=== PATIENT | male | born 1960 | race Two or more races ===

== ENCOUNTER 2023-09-08 01:09 | Emergency (ER) | payer OTHER ==
[~2023-09-08] VITALS: Ht 185.4 cm; Wt 111.1 kg
[2023-09-08] MEDS ORDERED: NORVASC5 MG PO (01:39)
[2023-09-08] MEDS ORDERED: LEXAPRO5 MG PO (01:39)
[2023-09-08] MEDS ORDERED: ADULT LOW DOSE81 M1 (01:40)
[2023-09-08 03:01] LABS: PH,URINE 5.5 (5.0-8.0); URINE APPEARANCE Clear; URINE BILIRRUBIN Negative (NEGATIVE); URINE BLOOD Negative; URINE COLOR Yellow; URINE GLUCOSE Negative (NEGATIVE); URINE LEUKOCYTE Negative; URINE NITRATE Negative; URINE PROTEIN Negative (NEGATIVE)
[2023-09-08 03:04] LABS: URINE EPITHELIAL CELLS 4.4 uL (0.0-38.8); URINE WBC 3.8 uL (0.0-23.2)
[2023-09-08 03:15] LABS: HEMATOCRIT 33.5 % (39.0-48.0); HEMOGLOBIN 10.8 g/dL (13-16.00); MEAN CORPUSCULAR HEMOGLOBIN 18.8 pg (27.00-32.0); MEAN CORPUSCULAR HGB CONC 32.4 g/dl (32.0-36.0); PLATELET COUNT 160 K/uL (150-450); RED BLOOD COUNT 5.76 M/uL (4.00-6.00); RED CELL DISTRIBUTION WIDTH 16.2 % (11.5-14.5)
[2023-09-08 03:18] LABS: MEAN CELL VOLUME 58.1 fL (80.0-100.00)
[2023-09-08 03:19] LABS: URINE BACTERIA 1.2 uL (0.0-1933); URINE RBC 1.8 uL (0.0-20.8)
[2023-09-08 03:24] LABS: INR 1.04; PARTIAL THROMBOPLASTIN TIME 28.2 SECONDS (22.0-34.0); PROTHROMBIN TIME 10.9 SECONDS (9.0-11.5)
[2023-09-08 03:26] LABS: ALBUMIN 3.7 gm/dL (3.4-5.0); BILIRUBIN TOTAL 0.77 mg/dL (0.3-1.2); CALCIUM 8.7 mg/dL (8.5-10.1); CREATININE SERUM 0.94 mg/dL (0.70-1.30); GFR 80.54; GLOBULINA 2.7 G/DL (2.4-3.5); POTASSIUM 3.64 mEq/L (3.5-5.1); TOTAL PROTEIN 6.4 gm/dL (6.4-8.2)
[2023-09-08] MEDS ORDERED: NORFLEX100MG PO ×2 (05:44)
== END 2023-09-08 05:51 ==
LOC: ER 01:11
PROVIDERS: General Practice
DX: M54.2 Cervicalgia (principal); M54.9 Dorsalgia, unspecified; R06.02 Shortness of breath